=== PATIENT | male | born 1990 | race Two or more races ===

== ENCOUNTER 2020-11-26 23:31 | Emergency (ER) | payer MEDICAID ==
[~2020-11-26] VITALS: Ht 172.7 cm; Wt 75.0 kg
[2020-11-26 23:34] VITALS: BP 117/66
[2020-11-27] MEDS ORDERED: IBUPROFEN 600MG TABLET PO ONE (00:15)
[2020-11-27] MEDS ORDERED: ACETAMINOPHEN 325MG TABLET PO ONE (01:15)
[2020-11-27] MEDS ORDERED: IBUP-2030 MT (01:16)
== END 2020-11-27 01:42 | disposition home or self-care (01) ==
LOC: ER 23:31
DX: S42.494A Other nondisplaced fracture of lower end of right humerus, initial encounter for closed fracture (principal); Z90.49 Acquired absence of other specified parts of digestive tract; W01.0XXA Fall on same level from slipping, tripping and stumbling without subsequent striking against object, initial encounter; Y93.66 Activity, soccer; Y92.89 Other specified places as the place of occurrence of the external cause; Y99.8 Other external cause status
CPT/HCPCS: 29105; 73080; 73090; 99284